=== PATIENT | male | born 1960 | race Caucasian/White ===

== ENCOUNTER 2024-06-17 08:26 | Emergency (ER) | payer MEDICAID, SELFPAY ==
--- NOTE | 2024-06-17 08:47 | PD.EDWOUND ---
ED Wound/Laceration-RME/HPI General Chief Complaint: Wound/Laceration Stated Complaint: THUMB LAC Time Seen by Provider: 06/17/24 08:28 Arrival date/time: 06/17/24 08:26 63-year-old male presents the emergency department complaints of 2 lacerations to his left thumb patient reports he was cooking today and accidentally cut himself unknown last tetanus Limitations: no limitations Related Data Previous Rx's ?Medication ?Instructions ?Recorded cephalexin 500 mg tablet 500 mg PO BID 7 days #14 tabs 06/17/24 ibuprofen 600 mg tablet 600 mg PO Q8H PRN pain #14 tabs 06/17/24 Review of Systems Review of Systems Systems Reviewed: All systems reviewed, normal except as documented Constitutional Constitutional: Reports system reviewed and no additional complaints, except as documented, Denies fever(s) and Denies headache(s) Eyes Eyes: Reports system reviewed and no additional complaints, except as documented and Denies blurry vision ENT Ears, Nose, Mouth, and Throat: Reports system reviewed and no additional complaints, except as documented, Denies headache(s), Denies nasal congestion and Denies nasal discharge Cardiovascular Cardiovascular: Reports system reviewed and no additional complaints, except as documented, Denies chest pain and Denies dyspnea Respiratory Respiratory: Reports system reviewed and no additional complaints, except as documented, Denies chest congestion, Denies cough and Denies dyspnea Gastrointestinal Gastrointestinal: Reports system reviewed and no additional complaints, except as documented and Denies abdominal pain Integumentary/Breasts Skin/Breast: Reports system reviewed and no additional complaints, except as documented, Denies rash and Reports wounds (Laceration x 2 left thumb) Neurologic Neurologic: Reports system reviewed and no additional complaints, except as documented, Reports as per HPI and Denies headache(s) Past Medical History Social History SMOKING STATUS: Never smoker ED Exam General Limitations: Present no limitations General appearance: Present alert and in no apparent distress Head Head exam: Present atraumatic Eye Eye exam: Present normal appearance, PERRL and EOMI ENT ENT exam: Present normal exam, normal oropharynx and mucous membranes moist Neck Neck exam: Present normal inspection, full ROM and trachea midline Chest Chest inspection: Present normal inspection and symmetric chest wall rise Respiratory Respiratory exam: Present normal lung sounds bilaterally Cardiovascular Cardiovascular exam: Present regular rate, normal rhythm and normal heart sounds Abdominal Exam Abdominal exam: Present soft and normal bowel sounds Extremities Exam Extremities exam: Present normal inspection and full ROM Back Exam Back exam: Present normal inspection and full ROM Neurological Exam Neurological exam: Present alert, oriented X3 and CN II-XII intact Psychiatric Psychiatric exam: Present normal affect and normal mood Skin Skin exam: Present warm, dry and other (Laceration left thumb) Course Quality Measures none Orders Category Date Time Status Set Up Suture Tray STAT Care 06/17/24 08:46 Completed Wound Care NOW Care 06/17/24 08:46 Completed Lidocaine 1% 20 ml [Xylocaine 1% 20 ML] Med 06/17/24 08:46 Discontinued 20 ml INFL X1 ONE Tet,Diphth,Pertuss(Acell)-Tdap [Boostrix Vacc] Med 06/17/24 08:46 Discontinued 0.5 ml IMI .ONCE ONE Vital Signs Vital signs: Vital Signs Temperature 98.1 F 06/17/24 08:49 Pulse Rate 60 06/17/24 08:49 Respiratory Rate 18 06/17/24 08:49 Blood Pressure 170/94 H 06/17/24 08:49 Pulse Oximetry (%) 98 06/17/24 08:49 Oxygen Delivery Method Room Air 06/17/24 08:49 O2 saturation 98% room air within normal limits Procedures -ED Laceration Laceration 1: Site: hand Side (If applicable): left Size (cm): 3 Description: linear Depth: simple, single layer Local Anesthetic: lidocaine 1% Amount of anesthesia used (mL): 3 Pre-repair: irrigated extensively Skin layer closed with: nylon Size (cm): 4-0 Number of sutures: 6 Technique: simple, interrupted Laceration 2: Site: hand Side (If applicable): left Size (cm): 3 Description: linear Depth: simple, single layer Local Anesthetic: lidocaine 1% Amount of anesthesia used (mL): 3 Pre-repair: irrigated extensively Skin layer closed with: nylon Size (cm): 4-0 Number of sutures: 6 Technique: simple, interrupted Wound / Laceration MDM Narrative MDM Narrative:: 63-year-old male presents the emergency department complaints of 2 lacerations to his left thumb patient reports he was cooking today and accidentally cut himself unknown last tetanus On exam patient has full range of motion of the digit wound is irrigated copiously both lacerations repaired patient has no evidence of tendon or ligamentous injury Both lacerations approximately 3 cm both laceration require 6 sutures for total of 12 Patient discharged home in no distress to follow-up with primary care doctor in the next 24 to 48 hours and for any worsening symptoms to return to the ER immediately Patient struck to have sutures removed in 10 days tetanus updated Patient data External records reviewed:: [facility] previous records Clinical information provided by:: patient Social determinants that could affect healthcare access:: none Patient has the following chronic illnesses:: None How is presenting disease/condition affected by chronic disease/condition?: no chronic disease Evaluation data The following diagnostics were reviewed and interpreted by me:: other (specify) (N/A) Lab and/or radiology exams considered but not ordered:: Consider not ordered Interpretation Summary: N/A Medications / Prescriptions Medications or Prescriptions considered but not ordered:: Given Medication administrations:: Medication Administration History Discontinued Medications Diphtheria/Tetanus/Acell Pertussis (Diphth,Pertuss(Acell),Tet Vac 0.5 Ml Vial) 0.5 ml IMi .ONCE ONE Stop: 06/17/24 08:47 Last Admin: 06/17/24 09:01 Dose: 0.5 ml Documented By: KHADIJAH Lidocaine HCl (Lidocaine Hcl 1% 20 Ml Vial) 20 ml INFL X1 ONE Stop: 06/17/24 08:47 Last Admin: 06/17/24 09:03 Dose: 20 ml Documented By: KHADIJAH Given Consultations Consultation(s) initiated? (list below): No Diagnosis Wound Differential Diagnosis: laceration, abrasion and avulsion of skin Most likely diagnosis given after review of the tests above:: Laceration Admission Indicated Admission indicated?: not indicated Admission Request Was there a request for admission?: No Disposition Plan Disposition Plan: Discharge Discharge Attestation Discharge Attestation: The patient and all family members were given an opportunity to ask questions and understood the discharge instructions. Discharge instructions specifically effects, indications for sooner follow up or return to the emergency department, and the expected course of current diagnosis. Patient condition: Stable Discharge Plan Plan Patient Disposition: HOME (Self Care) Disposition Comment: Stable Prescriptions/Referrals Prescriptions/Med Rec: New ibuprofen 600 mg tablet 600 mg PO Q8H PRN (Reason: pain) Qty: 14 0RF cephalexin 500 mg tablet 500 mg PO BID 7 Days Qty: 14 0RF Problem List Clinical Impression: Laceration Patient/Caregiver Discharge Instructions Additional Instructions: Please have sutures removed in 10 days For emergent concerns return to the immediately Print Language: Vietnamese Stand Alone Forms: Nereyda Award Info., Patient Portal Info Letter Vaccines Vaccines Given During Stay: TDaP PA/[employer] Supervising Physician PA/MANNE[employer]IN [employer]IST Supervising Physician: Dr Santana
[2024-06-17 08:49] VITALS: BP 170/94; PULSE 60; RESP 18; TEMP 36.7; O2SAT 98
[2024-06-17] MEDS: DIPHTH,PERTUSS(ACELL),TET VAC 0.5 ML VIAL IMi (09:01)
[2024-06-17] MEDS: LIDOCAINE HCL 1% 20 ML VIAL INFL (09:03)
== END 2024-06-17 09:51 | disposition home or self-care (01) ==
LOC: SERX 09:00
PROVIDERS: Emergency Provider Emergency Medicine; PCP Family Medicine
DX: S61.012A Laceration without foreign body of left thumb without damage to nail, initial encounter (principal); W45.8XXA Other foreign body or object entering through skin, initial encounter; Y93.G3 Activity, cooking and baking; Z23 Encounter for immunization
CPT/HCPCS: 12002; 90471; 90715; 99283; J3490